=== PATIENT | female | born 1985 | race Caucasian/White ===

== ENCOUNTER 2017-11-03 14:12 | Observation (INO) | payer MEDICAID, SELFPAY ==
[2017-11-03 14:13] VITALS: BP 106/86; PULSE 120; RESP 18; TEMP 36.6; O2SAT 98; BMI 27.4
[2017-11-03] MEDS: Ondansetron 4 MG/2 ML Vial IM (15:49)
[2017-11-03] MEDS: HYDROmorphone 1 MG/ML Syringe 2 MG SC (15:49)
--- NOTE | 2017-11-03 16:00 | RAD_ITS ---
STUDY: X-RAY - LUMBAR SPINE REASON FOR EXAM: Female, 32 years old. Following bath tub today. Severe low back pain. TECHNIQUE: 3 view(s) of the lumbar spine were obtained. COMPARISON: None FINDINGS: Normal lumbar lordosis. There is no substantial scoliosis. There is a normal alignment of the vertebrae. A Schmorl's node, a normal variant in the superior and anterior endplate of L3. There is intervertebral disc space narrowing at L2-3 and L3-4 with small osteophytes. There is diffuse facet sclerosis. The soft tissue structures are unremarkable. RAD/Lumbar Spine 2 or 3 Views IMPRESSION: Mild lumbar spondylosis. No acute pathology. Electronically Signed: Sonny Krueger MD at 16:23 EDT , Service support ,
--- NOTE | 2017-11-03 16:59 | ED.DCSUM_ITS ---
- ER Visit Summary Date of Service: 11/03/17 Chief Complaint: Back pain History of Present Illness: The patient is a 32 F presenting with back pain after slip in shower this morning. She fell onto her lower back. She tried Tylenol, ibuprofen, Percocet at home. She complains of severe lower back pain. She denies numbness or weakness. Denies bowel or bladder incontinence. She is able to ambulate with pain. She did not hit her head or lose consciousness. Physical Examination: Vitals are stable. Patient is afebrile. Alert no acute distress. HEENT exam is unremarkable. Neck is supple. Lungs are clear and equal bilaterally. Heart is regular rate and rhythm. Abdomen is soft nontender nondistended. Back: Lumbar tenderness with no step-off Extremities are unremarkable. Skin is warm and dry. No focal neurologic deficit. Normal strength and sensation Remainder of exam is unremarkable. Emergency Department Course and Treatment: Lumbar spine x-ray shows no acute process. Patient was given Dilaudid, Zofran IM. She continues to have pain and was given Toradol, Valium, Phenergan. She continues to have pain and does not feel that she can go home. Discussed with the hospitalist for observation. Disposition: Observation Impression: Intractable back pain This note was generated with [employer] dictation software. It may contain incorrect words, spelling, and punctuation that were not noted in review of the chart prior to signing ED Disposition - Plan for ED Patient: Chief Complaint: Back Referrals: Care Physician,No Primary [Primary Care Provider] -
[2017-11-03] MEDS: proMETHazine 25 MG/ML Syringe 12.5 MG IM (17:04)
[2017-11-03] MEDS: Ketorolac 60 MG/2 ML Vial IM (17:04)
[2017-11-03] MEDS: diazePAM 5 MG Tablet PO (17:04)
[2017-11-03] MEDS: HYDROmorphone 1 MG/ML Syringe SC (17:40)
[2017-11-03 18:24] VITALS: BP 130/77; PULSE 79; RESP 18; O2SAT 99
--- NOTE | 2017-11-03 18:24 | PCM.HP.STD ---
Problem List (1) Fall Status: Acute (2) Low back pain Status: Acute (3) History of pulmonary embolism Status: Chronic (4) History of DVT (deep vein thrombosis) Status: Chronic History of Present Illness Date of Admission: 11/03/17 Chief Complaint: Fall, back pain. The patient is a 32 year old F with past medical history as mentioned above presented to the emergency room because of back pain after she slipped in the shower this morning. She had a fall, she started having low back pain, sharp pain, 10 out of 10 in severity, not radiating, aggravated by movement, no relieving factors and no associated symptoms. She denied drinking numbness or tingling. She denied any prodromal symptoms such as chest pain, shortness of breath, dizziness or lightheadedness. She has history of IVC that was placed for history of PE and DVT that was taken out a few years ago but part of it was broken and left behind. That this pain is at the site where the broken IVC is. She denied hematuria, hematochezia or melena. In the emergency department, she received IV hydromorphone ?2, IV Toradol and Valium without improvement. He was tachycardic, later her heart rate came down to 70s, blood pressure stable and she is afebrile. X-ray lumbar spine showed no acute fractures or dislocations, there is linear opacity in the front of vertebral disc between L3 and L4 which could be corresponding to the broken piece of the IVC filter. 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 Lives: Spouse/ Significant Other Smoking Status: Former smoker Alcohol: None Drugs: None - *Family History Maternal History Items: No pertinent history Paternal History Items: No pertinent history Review of Systems Constitutional: Denies: Anorexia, Chills, Fever, Weakness Eyes: Denies: Blurred vision, Double vision, Drainage, Redness HEENT: Denies: Difficulty Hearing, Ear Pain, Eye Pain, Nasal Congestion, Sore Throat Cardiovascular: Denies: Chest Pain, Chest Pressure, Chest Tightness, Edema, Light Headedness, Palpitations, Syncope Respiratory: Denies: Cough, Pleuritic Pain, Shortness of Breath, Sputum production, Wheezing Gastrointestinal: Denies: Abdominal Pain, Constipation, Diarrhea, Nausea, Vomiting Genitourinary: Denies: Dysuria, Frequency, Hematuria Musculoskeletal: Reports: Back Pain. Denies: Arm Pain, Foot Pain Skin: Denies: Dryness, Rash Neurological: Denies: Balance problems, Double vision, Change in Speech, Slurred speech, Confusion, Focal weakness, Headaches, Incoordination, Numbness Psychiatric: Denies: Anxiety, Depression Endocrine: Denies: Change in Body Habitus, Polydipsia VTE Information - Inpt Only VTE Present on Admission: No VTE Mechan Device Prophylaxis: None VTE Pharm Prophylaxis ordered?: Yes Patient Problems: Active and Suspected Problems Fall (Acute) Low back pain (Acute) - Physical Exam General: Alert, Oriented x3, Cooperative, - - She is in mild to moderate pain. HEENT: Atraumatic, PERRLA, EOMI Oral: Moist Mucosa, No Gingival or Mucosal Lesions/ Ulcerations Neck: Supple, No JVD, Negative Carotid Bruits, Trachea Midline, Thyroid Normal Size and Texture Lungs: Clear to auscultation, Normal air movement, No rhonchi, No wheeze, No rales Cardiovascular: Regular rate, Regular Rhythm, Normal S1, Normal S2, No murmurs Abdomen: Bowel Sounds Present, Soft, Non Tender, Non-Distended, No Hepato-splenomegaly, Obese Extremities: No clubbing, No cyanosis, No edema Skin: No rashes, No breakdown Lymphatic: No Cervical, Supraclavicular, or Inguinal Adenopathy Neurological: Cranial nerves II-XII grossly intact, Motor Exam 5/5 strength throughout Psych/Mental Status: Normal Affect, Appropriate, Alert and oriented to time, place, person, mood and affect Vital Signs Temp Pulse Resp BP Pulse Ox 98 F 120 H 18 106/86 H 98 11/03/17 14:13 11/03/17 14:13 11/03/17 14:13 11/03/17 14:13 11/03/17 14:13 Oxygen Delivery Method Room Air Weight: 160 lb Body Mass Index (BMI) 27.4 Clinical Impression(s) from Imaging Studies Lumbar Spine X-Ray 11/03/17 16:00 IMPRESSION: Mild lumbar spondylosis. No acute pathology. Electronically Signed: Sonny Krueger MD at 16:23 EDT , Service support , Assessment/Plan Active and Suspected Problems Fall (Acute) Low back pain (Acute) This is a 52 years old female patient presented to the emergency department because of fall and low back pain, received IV hydromorphone ?2, IV Toradol ?1, IV Valium in the emergency room without improvement. She is being admitted for intractable low back pain in context of history of broken IVC filter and the site of the pain is corresponding to the place of the broken IVC filter. #1 fall/intractable low back pain: X-ray of the lumbar spine showed no evidence of acute fractures or dislocations. It does show that linear opacity in the front of the vertebral disc between L3 and L4 which could corresponds to the broken IVC filter. Vital signs are stable. No routine blood work was done in the emergency room. Plan: Admit to [facility] floor for observation, IV fluids, IV hydromorphone as needed for pain, IV OxyIR as needed for pain, CT scan lumbar spine with contrast, stat CBC and BMP, pro time and INR, Tylenol as needed, PT OT evaluation and treatment #2 history of PE/DVT, status post IVC filter: IVC was removed and was broken, a small part was left over. Plan as above. #3 DVT prophylaxis: Subcu Lovenox. This note was generated with [employer] dictation software. It may contain incorrect words, spelling, and punctuation that were not noted in checking the note before signing. Code Visit OBSV E&M: 08440 Initial observation care L3
--- NOTE | 2017-11-03 18:33 | HP.PCM_ITS ---
Problem List (1) Fall Status: Acute (2) Low back pain Status: Acute (3) History of pulmonary embolism Status: Chronic (4) History of DVT (deep vein thrombosis) Status: Chronic History of Present Illness Date of Admission: 11/03/17 Chief Complaint: Fall, back pain. The patient is a 32 year old F with past medical history as mentioned above presented to the emergency room because of back pain after she slipped in the shower this morning. She had a fall, she started having low back pain, sharp pain, 10 out of 10 in severity, not radiating, aggravated by movement, no relieving factors and no associated symptoms. She denied drinking numbness or tingling. She denied any prodromal symptoms such as chest pain, shortness of breath, dizziness or lightheadedness. She has history of IVC that was placed for history of PE and DVT that was taken out a few years ago but part of it was broken and left behind. That this pain is at the site where the broken IVC is. She denied hematuria, hematochezia or melena. In the emergency department, she received IV hydromorphone ?2, IV Toradol and Valium without improvement. He was tachycardic, later her heart rate came down to 70s, blood pressure stable and she is afebrile. X-ray lumbar spine showed no acute fractures or dislocations, there is linear opacity in the front of vertebral disc between L3 and L4 which could be corresponding to the broken piece of the IVC filter. 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 Lives: Spouse/ Significant Other Smoking Status: Former smoker Alcohol: None Drugs: None - *Family History Maternal History Items: No pertinent history Paternal History Items: No pertinent history Review of Systems Constitutional: Denies: Anorexia, Chills, Fever, Weakness Eyes: Denies: Blurred vision, Double vision, Drainage, Redness HEENT: Denies: Difficulty Hearing, Ear Pain, Eye Pain, Nasal Congestion, Sore Throat Cardiovascular: Denies: Chest Pain, Chest Pressure, Chest Tightness, Edema, Light Headedness, Palpitations, Syncope Respiratory: Denies: Cough, Pleuritic Pain, Shortness of Breath, Sputum production, Wheezing Gastrointestinal: Denies: Abdominal Pain, Constipation, Diarrhea, Nausea, Vomiting Genitourinary: Denies: Dysuria, Frequency, Hematuria Musculoskeletal: Reports: Back Pain. Denies: Arm Pain, Foot Pain Skin: Denies: Dryness, Rash Neurological: Denies: Balance problems, Double vision, Change in Speech, Slurred speech, Confusion, Focal weakness, Headaches, Incoordination, Numbness Psychiatric: Denies: Anxiety, Depression Endocrine: Denies: Change in Body Habitus, Polydipsia VTE Information - Inpt Only VTE Present on Admission: No VTE Mechan Device Prophylaxis: None VTE Pharm Prophylaxis ordered?: Yes Patient Problems: Active and Suspected Problems Fall (Acute) Low back pain (Acute) - Physical Exam General: Alert, Oriented x3, Cooperative, - - She is in mild to moderate pain. HEENT: Atraumatic, PERRLA, EOMI Oral: Moist Mucosa, No Gingival or Mucosal Lesions/ Ulcerations Neck: Supple, No JVD, Negative Carotid Bruits, Trachea Midline, Thyroid Normal Size and Texture Lungs: Clear to auscultation, Normal air movement, No rhonchi, No wheeze, No rales Cardiovascular: Regular rate, Regular Rhythm, Normal S1, Normal S2, No murmurs Abdomen: Bowel Sounds Present, Soft, Non Tender, Non-Distended, No Hepato- splenomegaly, Obese Extremities: No clubbing, No cyanosis, No edema Skin: No rashes, No breakdown Lymphatic: No Cervical, Supraclavicular, or Inguinal Adenopathy Neurological: Cranial nerves II-XII grossly intact, Motor Exam 5/5 strength throughout Psych/Mental Status: Normal Affect, Appropriate, Alert and oriented to time, place, person, mood and affect Vital Signs Temp Pulse Resp BP Pulse Ox 98 F 120 H 18 106/86 H 98 11/03/17 14:13 11/03/17 14:13 11/03/17 14:13 11/03/17 14:13 11/03/17 14:13 Oxygen Delivery Method Room Air Weight: 160 lb Body Mass Index (BMI) 27.4 Clinical Impression(s) from Imaging Studies Lumbar Spine X-Ray 11/03/17 16:00 IMPRESSION: Mild lumbar spondylosis. No acute pathology. Electronically Signed: Sonny Krueger MD at 16:23 EDT , Service support , Assessment/Plan Active and Suspected Problems Fall (Acute) Low back pain (Acute) This is a 52 years old female patient presented to the emergency department because of fall and low back pain, received IV hydromorphone ?2, IV Toradol ?1, IV Valium in the emergency room without improvement. She is being admitted for intractable low back pain in context of history of broken IVC filter and the site of the pain is corresponding to the place of the broken IVC filter. #1 fall/intractable low back pain: X-ray of the lumbar spine showed no evidence of acute fractures or dislocations. It does show that linear opacity in the front of the vertebral disc between L3 and L4 which could corresponds to the broken IVC filter. Vital signs are stable. No routine blood work was done in the emergency room. Plan: Admit to [facility] floor for observation, IV fluids, IV hydromorphone as needed for pain, IV OxyIR as needed for pain, CT scan lumbar spine with contrast, stat CBC and BMP, pro time and INR, Tylenol as needed, PT OT evaluation and treatment #2 history of PE/DVT, status post IVC filter: IVC was removed and was broken, a small part was left over. Plan as above. #3 DVT prophylaxis: Subcu Lovenox. This note was generated with [employer] dictation software. It may contain incorrect words, spelling, and punctuation that were not noted in checking the note before signing. Code Visit OBSV E&M: 20072 Initial observation care L3
[2017-11-03 18:53] VITALS: BMI 27.5
[2017-11-03 19:17] VITALS: BMI 33.3
--- NOTE | 2017-11-03 19:18 | CT_ITS ---
STUDY: CT LUMBAR SPINE WITHOUT CONTRAST REASON FOR EXAM: Female, 32 years old. Fall RADIATION DOSAGE (If Supplied By Facility): CTDIvol = ( 23.87 ) mGy, DLP = ( 1095.55 ) mGycm TECHNIQUE: The patient was scanned in a multi detector CT scanner. High resolution transaxial imaging was performed. Images were obtained from T12 to sacrum. Sagittal and coronal images were reconstructed. Individualized dose optimization techniques were used for this CT. COMPARISON: None FINDINGS: Normal lumbar lordosis. There is no substantial scoliosis. Normal vertebrae of the lumbar spine. L1-2: Normal endplates. Normal disc height and morphology. Normal bilateral facet joints. Normal central canal and bilateral lateral recesses. Normal bilateral intervertebral neural foramina. L2-3: Schmorl's node at the superior endplate of L3. Normal disc height and morphology. Normal bilateral facet joints. Normal central canal and bilateral lateral recesses. Normal bilateral intervertebral neural foramina. L3-4: Schmorl's node at the superior endplate of L4. Normal disc height and morphology. Normal bilateral facet joints. Normal central canal and bilateral lateral recesses. Normal bilateral intervertebral neural foramina. L4-5: Normal endplates. Normal disc height and morphology. Normal bilateral facet joints. Normal central canal and bilateral lateral recesses. Normal bilateral intervertebral neural foramina. L5-S1: Normal endplates. Normal disc height and morphology. Normal bilateral facet joints. Normal central canal and bilateral lateral recesses. Normal bilateral intervertebral neural foramina. Normal visualized paraspinous soft tissue structures. CT/Spine Lumbar without Contrast IMPRESSION: No acute bony pathology of the lumbar spine. Electronically Signed: Mohamud Hernandez DO at 20:48 EDT Tel [phone], Service support ,
[2017-11-03] MEDS: oxyCODONE 5 MG Tablet PO (19:45)
[2017-11-03 21:21] LABS: Absolute Lymphocyte Count 2.52 X10^3/ul (0.83-4.51); Absolute Neutrophil Count 3.3 X10^3/uL (2.0-7.7); Basophil# 0.01 X10^3/uL; Basophil% 0.1 % (0-1); Eosinophil# 0.38 X10^3/uL; Eosinophils% 5.5 % (0-5); Hematocrit 38.8 % (37-47); Lymphocyte # 2.52 X10^3/ul (4.0); Lymphocyte % 36.4 % (19-41); Mean Corp Hgb Conc 33.5 g/gl (32-36); Mean Corpuscular Hgb 29.1 pg (27.0-32.0); Mean Corpuscular Volume 86.8 fL (81-99); Mean Platelet Vol. 8.9 fl (6.2-12.0); Monocyte# 0.68 X10^3/uL; Monocyte% 9.8 % (0-10); Neutrophil # 3.33 X10^3/uL (2.7-7.7); Neutrophil % 48.1 % (47-70); Platelet Count 287 K/mm3 (150-450); RBC Distribution Width CV 14.6 % (11.6-14.6); RBC Distribution Width SD 46.3 fl (35.1-43.9); Red Blood Count 4.47 M/mm3 (4.2-5.4); White Blood Count 6.9 K/mm3 (4.4-11.0)
[2017-11-03 21:22] LABS: POSITIVE COUNT NO; POSITIVE DIFFERENTIAL NO; POSITIVE MORPHOLOGY NO
[2017-11-03 21:24] LABS: Prothrombin Time (Protime)PT. 13.3 SECONDS (11.7-14.9)
[2017-11-03 21:28] LABS: Anion Gap 8 (5-15); BUN 7 mg/dL (7-18); BUN/Creat Ratio 9.3 RATIO (10-20); Calcium,Total 8.2 mg/dL (8.5-10.1); Chloride 106 mmol/L (98-107); Creatinine, Serum 0.75 mg/dL (0.55-1.02); EST Glomerular Filtration Rate 94 mL/min (>60); Est Glom Filt Rate - Afr Amer 114 mL/min (>60); Estimated Creatinine Clearance 92.99 ml/min; Glucose 89 mg/dL (74-106); Potassium 3.5 mmol/L (3.5-5.1); Sodium Level 140 mmol/L (136-145)
[2017-11-03 21:39] VITALS: BP 117/74; PULSE 90; RESP 18; TEMP 36.6; O2SAT 98
[2017-11-03] MEDS: Ondansetron 4 MG/2 ML Vial IV (23:07)
[2017-11-03] MEDS: HYDROmorphone 1 MG/ML Syringe IV (23:07)
[2017-11-03] MEDS: 0.9% Normal Saline 1,000 ML 75 ML IV (23:07)
[2017-11-04] VITALS (10 sets, daily range): BP systolic 96–121; BP diastolic 60–82; PULSE 60–100; RESP 16–18; TEMP 36.4–36.8; O2SAT 95–100
[2017-11-04] MEDS: HYDROmorphone 1 MG/ML Syringe IV ×2 (02:05→05:08)
[2017-11-04] MEDS: Ondansetron 4 MG/2 ML Vial IV ×2 (05:08→21:02)
[2017-11-04] MEDS: Enoxaparin 40 MG/0.4 ML Syringe SC (05:27)
--- NOTE | 2017-11-04 08:10 | PCM.PROGNOTE ---
Patient Problems: Active and Suspected Problems Fall (Acute) Low back pain (Acute) Subjective: Patient is a 32-year-old female with a past medical history of pulmonary embolism and DVT who is on no home medication who presented to the emergency room on 11/03/2017 at [facility] complaining of back pain after falling in the shower that morning. Plain x-ray of the lumbar spine showed mild lumbar spondylosis with no acute pathology. CT scan of the lumbar spine showed no acute bony pathology, no disc herniations and no stenosis. Normal neural foramina at every level. There is a foreign body anterior to the L3-4 vertebral space that appears as though it may be protruding into the disc space. She gives a story of having an IVC filter removed in the past and part of it breaking off and left inside? The filter was removed by a interventional radiologist at the [facility]. She has seen 2 different neurosurgeons at [facility] and they have said that surgery to remove this object is too risky. She was given Toradol, Valium and Dilaudid in the ED with no improvement. She was admitted to the hospital with intractable back pain and placed on hydromorphone 1 mg IV every 3 hours as needed and oxycodone 5 mg p.o. every 6 hours as needed. She has been taking Dilaudid every 3 hours since admission. Has tried the Oxy IR only once. The Dilaudid does not last 3 hours. She is only comfortable when she is lying on her left side with a pillow between her legs. An [facility] report was reviewed and she was getting regular prescriptions for Percocet up until the end of April 2017 when they stopped. She tells me at that time the Percocet was not really helping and she did not want to take it anymore. She has been living with the pain. The fall in the shower seems to have exacerbated her pain. - Physical Exam General: Alert, Oriented x3, Cooperative, - - appears to be in pain HEENT: Atraumatic, PERRLA, EOMI, Normocephalic Oral: Moist Mucosa Neck: Supple, No Nuchal Rigidity Lungs: Clear to auscultation Cardiovascular: Regular rate, Regular Rhythm, Normal S1, Normal S2, No murmurs, No rub noted, No Gallop Abdomen: Bowel Sounds Present, Soft, Non Tender, Non-Distended Extremities: No clubbing, No cyanosis, No edema, - - She is able to heel walk and toe walk. she has no pain radiating into the legs and no paresthesias. Standing exacerbates the pain. No pain with palpation of the low back and no bruising Skin: No rashes, No breakdown Neurological: Cranial nerves II-XII grossly intact, Neuro grossly intact Psych/Mental Status: Appropriate - emotional and crying in pain......has not been able to find anyone who can remove the foreign body Vital Signs Temp Pulse Resp BP Pulse Ox 97.6 F L 83 16 111/60 97 11/04/17 02:08 11/04/17 02:08 11/04/17 02:08 11/04/17 02:08 11/04/17 02:08 Oxygen Delivery Method Room Air Weight: 194 lb 6.4 oz Body Mass Index (BMI) 33.3 Intake and Output for Last 24 Hours 11/02/17 11/03/17 11/04/17 23:59 23:59 23:59 Intake Total 792 / 792 Output Total 100 / 100 Balance 692 / 692 Laboratory Tests Past 24 Hrs 11/03/17 11/03/17 11/03/17 21:02 21:02 21:02 WBC 6.9 RBC 4.47 Hgb 13.0 Hct 38.8 MCV 86.8 MCH 29.1 MCHC 33.5 RDW 14.6 RDW Differential 46.3 H Plt Count 287 MPV 8.9 Immature Gran % (Auto) 0.100 Neut % (Auto) 48.1 Lymph % (Auto) 36.4 [place] % (Auto) 9.8 Eos % (Auto) 5.5 H Baso % (Auto) 0.1 Absolute Neuts (auto) 3.3 Absolute Lymphs (auto) 2.52 Total Counted Not Reportable PT 13.3 INR 1.0 Sodium 140 Potassium 3.5 Chloride 106 Carbon Dioxide 26.0 Anion Gap 8 BUN 7 Creatinine 0.75 Estim Creat Clear Calc 92.99 Est GFR (MDRD) Af Amer 114 Est GFR (MDRD) Non-Af 94 BUN/Creatinine Ratio 9.3 L Glucose 89 Calcium 8.2 L Medical Necessity - Tobacco Use Smoking Status: Former smoker Assessment/Plan All Active Problems Fall (Acute) Low back pain (Acute) Impressions 1. Intractable back pain 2. Foreign body, a strut from a IVC filter that has been removed, anterior to L3-4 and may be protruding into the intervertebral disc space Dilaudid JTAC for pain control tonight MRI of the LS spine with and without contrast in the AM Code Visit Inpatient E&M: 50048 Subs Hosp L2
--- NOTE | 2017-11-04 08:22 | PN_ITS ---
Patient Problems: Active and Suspected Problems Fall (Acute) Low back pain (Acute) Subjective: Patient is a 32-year-old female with a past medical history of pulmonary embolism and DVT who is on no home medication who presented to the emergency room on 11/03/2017 at [facility] complaining of back pain after falling in the shower that morning. Plain x-ray of the lumbar spine showed mild lumbar spondylosis with no acute pathology. CT scan of the lumbar spine showed no acute bony pathology, no disc herniations and no stenosis. Normal neural foramina at every level. There is a foreign body anterior to the L3-4 vertebral space that appears as though it may be protruding into the disc space. She gives a story of having an IVC filter removed in the past and part of it breaking off and left inside? The filter was removed by a interventional radiologist at the [facility]. She has seen 2 different neurosurgeons at [facility] and they have said that surgery to remove this object is too risky. She was given Toradol, Valium and Dilaudid in the ED with no improvement. She was admitted to the hospital with intractable back pain and placed on hydromorphone 1 mg IV every 3 hours as needed and oxycodone 5 mg p.o. every 6 hours as needed. She has been taking Dilaudid every 3 hours since admission. Has tried the Oxy IR only once. The Dilaudid does not last 3 hours. She is only comfortable when she is lying on her left side with a pillow between her legs. An OARRS report was reviewed and she was getting regular prescriptions for Percocet up until the end of April 2017 when they stopped. She tells me at that time the Percocet was not really helping and she did not want to take it anymore. She has been living with the pain. The fall in the shower seems to have exacerbated her pain. - Physical Exam General: Alert, Oriented x3, Cooperative, - - appears to be in pain HEENT: Atraumatic, PERRLA, EOMI, Normocephalic Oral: Moist Mucosa Neck: Supple, No Nuchal Rigidity Lungs: Clear to auscultation Cardiovascular: Regular rate, Regular Rhythm, Normal S1, Normal S2, No murmurs, No rub noted, No Gallop Abdomen: Bowel Sounds Present, Soft, Non Tender, Non-Distended Extremities: No clubbing, No cyanosis, No edema, - - She is able to heel walk and toe walk. she has no pain radiating into the legs and no paresthesias. Standing exacerbates the pain. No pain with palpation of the low back and no bruising Skin: No rashes, No breakdown Neurological: Cranial nerves II-XII grossly intact, Neuro grossly intact Psych/Mental Status: Appropriate - emotional and crying in pain......has not been able to find anyone who can remove the foreign body Vital Signs Temp Pulse Resp BP Pulse Ox 97.6 F L 83 16 111/60 97 11/04/17 02:08 11/04/17 02:08 11/04/17 02:08 11/04/17 02:08 11/04/17 02:08 Oxygen Delivery Method Room Air Weight: 194 lb 6.4 oz Body Mass Index (BMI) 33.3 Intake and Output for Last 24 Hours 11/02/17 11/03/17 11/04/17 23:59 23:59 23:59 Intake Total 792 / 792 Output Total 100 / 100 Balance 692 / 692 Laboratory Tests Past 24 Hrs 11/03/17 11/03/17 11/03/17 21:02 21:02 21:02 WBC 6.9 RBC 4.47 Hgb 13.0 Hct 38.8 MCV 86.8 MCH 29.1 MCHC 33.5 RDW 14.6 RDW Differential 46.3 H Plt Count 287 MPV 8.9 Immature Gran % (Auto) 0.100 Neut % (Auto) 48.1 Lymph % (Auto) 36.4 [place] % (Auto) 9.8 Eos % (Auto) 5.5 H Baso % (Auto) 0.1 Absolute Neuts (auto) 3.3 Absolute Lymphs (auto) 2.52 Total Counted Not Reportable PT 13.3 INR 1.0 Sodium 140 Potassium 3.5 Chloride 106 Carbon Dioxide 26.0 Anion Gap 8 BUN 7 Creatinine 0.75 Estim Creat Clear Calc 92.99 Est GFR (MDRD) Af Amer 114 Est GFR (MDRD) Non-Af 94 BUN/Creatinine Ratio 9.3 L Glucose 89 Calcium 8.2 L Medical Necessity - Tobacco Use Smoking Status: Former smoker Assessment/Plan All Active Problems Fall (Acute) Low back pain (Acute) Impressions 1. Intractable back pain 2. 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
[2017-11-04] MEDS: Acetaminophen 325 MG Tablet 650 MG PO (08:46)
[2017-11-04] MEDS: oxyCODONE 5 MG Tablet PO ×2 (08:46→14:54)
[2017-11-04] MEDS: Ibuprofen 400 MG Tablet 800 MG PO ×2 (12:19→21:14)
[2017-11-04] MEDS: tiZANidine HCl 2 MG Tablet 4 MG PO ×2 (14:22→21:15)
--- NOTE | 2017-11-04 16:36 | CHAPLAIN ---
Type of Pastoral Visit _x__ Initial Visit ___ Follow-up Visit ___ On-call Visit ___ General Patient Visit ___ Spiritual Assessment ___ Family Conference ___ Bereavement ___ Rapid Response ___ Code Blue ___ Other (describe below) Pastoral Care Referral From _x__ Patient ___ Family ___ Nurse ___ Physician ___ Box Lining Machine Feeder ___ Keel Press Operator ___ Other (describe below) Sacrament/Intervention ___ Active listening ___ Anointing ___ Christian ___ Bereavement ___ Communion ___ Yodit exploration ___ ___ Life review ___ Prayer ___ Reconciliation ___ Sacrament of Sick _x__ Supportive presence ___ Wedding ___ Other (describe below) Pastoral Comments patient has pillow over her head and shaking; pt says that she does not really want to talk with anyone at this time; left patient and gave offer to return for support if she would desire that in the future
[2017-11-04] MEDS: HYDROmorphone PCA 0.2 MG/ML 100 ML BAG 20 MG IV (20:07)
[2017-11-04] MEDS: 0.9% NaCl IVPB Med Flush (250 mL) 15 ML IV (21:02)
[2017-11-04] MEDS: Senna/Docusate Sodium 1 Tablet 2 TABLET PO (21:15)
[2017-11-05] VITALS (15 sets, daily range): BP systolic 98–117; BP diastolic 63–83; PULSE 69–98; RESP 16–18; TEMP 36.4–36.9; O2SAT 93–97
[2017-11-05 02:06] LABS: Bedside Glucose 104 mg/dL (70-110)
--- NOTE | 2017-11-05 02:17 | PCM.HOSP.N ---
Hospitalist Note Patient used restroom without any staff assist despite prior recommendations to call staff for any needs especially given intractable back pain admission w/ debility. She noted when getting you from the toilet she was lightheaded and started to fall. In order to minimize discomfort to her back, she fell forward onto her knees. She denied any severe pain to the region and denied any head trauma. She was assisted back to bed and a bed alarm was placed.
[2017-11-05] MEDS: Ondansetron 4 MG/2 ML Vial IV ×2 (04:18→12:27)
[2017-11-05] MEDS: Ibuprofen 400 MG Tablet 800 MG PO ×2 (05:52→13:43)
[2017-11-05] MEDS: Enoxaparin 40 MG/0.4 ML Syringe SC (05:52)
[2017-11-05] MEDS: tiZANidine HCl 2 MG Tablet 4 MG PO ×2 (06:49→13:43)
--- NOTE | 2017-11-05 07:08 | PN_ITS ---
Patient Problems: Active and Suspected Problems Fall (Acute) Low back pain (Acute) Subjective: All events of the past 24 hours been reviewed. She fell last night in the bathroom. I reviewed Dr. Etienne's note of the event and apparently there were no injuries. She failed to call the nurse or nurse's aide for assistance to the bathroom. This a.m. she is requesting something for anxiety prior to the MRI. 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 She suggested that Phenergan helps her. MRI is scheduled for today. She is afebrile with stable vital signs. Pulse ox is 94-97% on room air. She seems to have a high tolerance of narcotics despite the fact that she states she has not taken Percocet since May 2017. - Physical Exam Vital Signs Temp Pulse Resp BP Pulse Ox 97.9 F 89 16 111/74 94 11/05/17 06:58 11/05/17 06:58 11/05/17 06:58 11/05/17 06:58 11/05/17 06:58 Oxygen Delivery Method Room Air Weight: 194 lb 6.387 oz Body Mass Index (BMI) 33.3 Intake and Output for Last 24 Hours 11/03/17 11/04/17 11/05/17 23:59 23:59 23:59 Intake Total 792 / 792 714 / 714 Output Total 100 / 100 Balance 692 / 692 714 / 714 POC Glucose 11/05/17 02:00 POC Glucose 104 Medical Necessity - Tobacco Use Smoking Status: Former smoker Assessment/Plan All Active Problems Fall (Acute) Low back pain (Acute)
--- NOTE | 2017-11-05 08:30 | MRI_ITS ---
STUDY: MRI LUMBAR SPINE WITHOUT CONTRAST REASON FOR EXAM: Female, 32 years old. FB PROTRUDING INTO L3/4 DISC SPACE, hx of broken ivc filter remaining, back pain s/p fall TECHNIQUE: Standardized fat and water weighted pulse sequences were obtained in the sagittal and axial planes. COMPARISON: CT November 03, 2017 FINDINGS: There is motion artifact. There is an exaggerated lumbar lordosis. There is no substantial scoliosis. Normal conus medullaris that terminates at the L1-2 level. There is no spondylolisthesis. There is disc desiccation at L2-3 and L3-4. There is mild loss of disc height at L5-S1. There is chronic loss of height of the anterior superior L3 and L4 vertebral bodies. Bone marrow signal is normal. There is no acute fracture. T12/L1: Sagittal images only were obtained. Normal. L1/2: Normal. L2/3: There is a minimal diffuse bulge. No central canal or neuroforaminal stenosis. L3/4: There is a minimal diffuse bulge. No central canal or neuroforaminal stenosis. L4/5: There is facet and ligamentum flavum hypertrophy. Normal disc. No central canal or neuroforaminal stenosis. L5/S1: There is facet and ligamentum flavum hypertrophy. Normal disc. No central canal or neuroforaminal stenosis. Normal visualized sacral ala. The foreign body well seen on the CT is only suggested on the MRI. No associated soft tissue edema or hematoma is seen. MRI/Spine Lumbar (Routine) IMPRESSION: The foreign body well seen on the CT is only suggested on the MRI. No associated soft tissue edema or hematoma is seen. Mild degenerative changes of the lumbar spine without central canal or neuroforaminal stenosis. Electronically Signed: Anu Marcus MD at 12:35 EDT , Service support ,
[2017-11-05] MEDS: proMETHazine 25 MG/ML Syringe 12.5 MG IV (09:13)
[2017-11-05] MEDS: HYDROmorphone 1 MG/ML Syringe IV (09:15)
--- NOTE | 2017-11-05 09:28 | NURSING ---
to mri via bed, pt removed her jewelery
--- NOTE | 2017-11-05 10:10 | NURSING ---
returned from mri by bed
[2017-11-05] MEDS: Acetaminophen 325 MG Tablet 650 MG PO ×2 (12:25→19:28)
[2017-11-05] MEDS: oxyCODONE 5 MG Tablet 10 MG PO ×3 (13:42→19:28)
--- NOTE | 2017-11-05 15:00 | CHAPLAIN ---
Type of Pastoral Visit ___ Initial Visit _x__ Follow-up Visit ___ On-call Visit ___ General Patient Visit ___ Spiritual Assessment ___ Family Conference ___ Bereavement ___ Rapid Response ___ Code Blue ___ Other (describe below) Pastoral Care Referral From _x__ Patient ___ Family ___ Nurse ___ Physician ___ Mill Operator Helper ___ Piercer ___ Other (describe below) Sacrament/Intervention ___ Active listening ___ Anointing ___ Yazidism ___ Bereavement ___ Communion ___ Yodit exploration ___ ___ Life review ___ Prayer ___ Reconciliation ___ Sacrament of Sick _x__ Supportive presence ___ Wedding ___ Other (describe below) Pastoral Comments patient says that she has had some improvement and is waiting on test results; pt says that she misses her children and hopes to see them today as they plan to visit; no further requests or concerns
--- NOTE | 2017-11-05 15:54 | NURSING ---
no changes in am assessment, denies n/t to extremeties-a&o x3-able to stand, walke and void after getting self out of bed-ambulatory to br for void, pt states she feels like she is emptying-c/o nausea but eats full meals ordered from dietary
--- NOTE | 2017-11-05 18:53 | PCM.DC ---
- Discharge Diagnoses Current Active Problems: Current Active and Chronic Problems Fall (Acute) Low back pain (Acute) History of pulmonary embolism (Chronic) History of DVT (deep vein thrombosis) (Chronic) You will use the following diet at home:: No restrictions Your food should be the consistency of: Regular Your liquids should be the consistency of: Regular/Thin Discharge Activity: - - No bending, Lifting or twisting for the next 5 days. Do not ride in a car for more that 5-10 minutes. Return to work on:: 11/09/17 May resume sexual activity in: 10-14 days Weight Bearing Status: Weight bearing as tolerated Lifting Restrictions: no more than 5 pounds Additional Activity Instructions:: do not sit for more than 1 hour at a time without getting up to move around Call your doctor if you observe: Fever of 101 or Higher, Inability to urinate, Inability to have a bowel movement, Uncontrolled pain Additional Instructions: 1. When you have chronic pain it is best to treat it with multiple different modalities for pain relief. I am giving you a prescription for Motrin (which is an anti-inflammatory), tizanidine (a muscle relaxer) and Percocet. Sometimes moist heat for 15 minutes 3-4 times a day helps and massage can help as well. Many people get relief from accupuncture and I think a TENS unit is very beneficial. You can purchase a TENS unit at most of the larger pharmacies and they are relatively inexpensive. Take it easy for the next 4-5 days. I would continue your efforts to find a surgeon willing to try and get the strut from the IVC filter excised.....it will not be an easy task and every surgery makes scar tissue which can also cause pain. Explore all your options and make sure to ask about all the risks associated with the planned surgery. The MRI was normal and the strut does not contact the vertebral bodies or the spinal cord or the nerves exiting the spinal cord in any way. Something else you might think about is a medication called Cymbalta. Cymbalta is an antidepressant that is also used to help manage chronic pain. If you are anxious or depressed every pain is greatly magnified and harder to endure......Effexor is a similar medicatrion that you could try if your insurance does not cover Cymbalta. Pending Tests on Discharge: none Allergies/Adverse Reactions: Allergies haloperidol [From Haldol] Allergy (Verified 11/03/17 14:15) Hives morphine Allergy (Verified 11/03/17 14:15) Hives ANTIBIOTIC Allergy (Uncoded 11/03/17 14:15) Unknown Medications to take at Discharge Ibuprofen [Motrin] 800 mg PO Q8 #90 tab 11/05/17 Oxycodone HCl/Acetaminophen [Percocet 10-325 mg Tablet] 1 tab PO Q6H PRN PRN 7 Days #28 tab 11/05/17 Tizanidine HCl [Zanaflex] 4 mg PO Q8H PRN PRN #30 tab 11/05/17 The following prescriptions were given: Oxycodone HCl/Acetaminophen [Percocet 10-325 mg Tablet] 1 tab PO Q6H PRN PRN 7 Days #28 tab PRN Reason: Pain Tizanidine HCl [Zanaflex] 4 mg PO Q8H PRN PRN #30 tab PRN Reason: muscle spasm/back pain Ibuprofen [Motrin] 800 mg PO Q8 #90 tab Primary Care Physician: Care Physician,No Primary [Primary Care Provider] - Please follow up with your Primary Care Physician in: 1-2 weeks Proposed Discharge Date: 11/05/17
--- NOTE | 2017-11-05 19:06 | PCM.DC.SUM ---
Discharge Date and Diagnosis - Problem List Patient Problems: Active and Suspected Problems Fall (Acute) Low back pain (Acute) Date of Admission: 11/03/17 Date of Discharge: 11/05/17 - Primary Discharge Diagnosis Active and Suspected Problems Fall (Acute) Intractable Low back pain (Acute) - Secondary Discharge Diagnosis Chronic Problems Foreign body of back (Chronic) anterior to the vertebral bodies at L3-4. this is a strut from an IVC filter that was incompletely removed. History of pulmonary embolism (Chronic) History of DVT (deep vein thrombosis) (Chronic) obesity Hospital Course and Treatment Imaging Results: Clinical Impression(s) from Imaging Studies Lumbar Spine X-Ray 11/03/17 16:00 IMPRESSION: Mild lumbar spondylosis. No acute pathology. Electronically Signed: Sonny Krueger MD at 16:23 EDT , Service support , ADDENDUM: 11/05/[address] 11/03/17 19:18 IMPRESSION: No acute bony pathology of the lumbar spine. Electronically Signed: Mohamud Hernandez DO at 20:48 EDT Tel [phone], Service support , ADDENDUM: 11/03/17 2110 Lumbar Spine MRI 11/05/17 08:30 IMPRESSION: The foreign body well seen on the CT is only suggested on the MRI. No associated soft tissue edema or hematoma is seen. Mild degenerative changes of the lumbar spine without central canal or neuroforaminal stenosis. Electronically Signed: Anu Marcus MD at 12:35 EDT , Service support , none Operations: None Procedures: None Summary of Care Provided: Patient is a 32-year-old female with a past medical history of pulmonary embolism and DVT who is on no home medication who presented to the emergency room on 11/03/2017 at [facility] complaining of back pain after falling in the shower that morning. Plain x-ray of the lumbar spine showed mild lumbar spondylosis with no acute pathology. CT scan of the lumbar spine showed no acute bony pathology, no disc herniations and no stenosis. There were normal neural foramina at every level. There was a foreign body anterior to the L3-4 intervertebral space. She told me that she had a IVC filter removed in the past and part of it broke off and was left inside? The filter was removed by a interventional radiologist at the [facility]. She has seen 2 different neurosurgeons at [facility] and they have said that surgery to remove this object is too risky. She was given Toradol, Valium and Dilaudid in the ED with no improvement. She was admitted to the hospital with intractable back pain and placed on hydromorphone 1 mg IV every 3 hours as needed and oxycodone 5 mg p.o. every 6 hours as needed. The Dilaudid did not last 3 hours and she was still very uncomfortable. She was only comfortable when she was lying on her left side with a pillow between her legs. An OARRS report was reviewed and she was getting regular prescriptions for Percocet up until the end of April 2017 when they stopped. She tells me at that time the Percocet was not really helping and she did not want to take it anymore. She has been living with the pain. The fall in the shower seems to have exacerbated her pain. 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 The following morning she had an MRI of the lumbar spine that showed that the foreign body well seen on the CT scan was only suggested on the MRI. There was no associated soft tissue edema or hematoma seen. There were mild degenerative changes of the lumbar spine without central canal or neural foraminal stenosis. She was transitioned to Percocet, Tizanidine and Motrin. I suggested she may want to consider accupuncture, massage, Cymbalta or a TENS unit to assist with pain control. I stressed that pain generally is best treated with several different modalities rather than large doses of Narcotics. I encouraged her to continue to seek out other opinions from surgery about the feasibility of removing the foreign body and the risks vs benefits of the surgery. She was discharged home on 11/05/17. She was instructed not to return to work until November 09. - Physical Exam General: Alert, Oriented x3, Cooperative, - - appears to be in pain HEENT: Atraumatic, PERRLA, EOMI, Normocephalic Oral: Moist Mucosa Neck: Supple, No Nuchal Rigidity Lungs: Clear to auscultation Cardiovascular: Regular rate, Regular Rhythm, Normal S1, Normal S2, No murmurs, No rub noted, No Gallop Abdomen: Bowel Sounds Present, Soft, Non Tender, Non-Distended Extremities: No clubbing, No cyanosis, No edema, - - She is able to heel walk and toe walk. She has no pain radiating into the legs and no paresthesias. Standing exacerbates the pain. No pain with palpation of the low back and no bruising. She was able to squat and get up from a squat without assistance Skin: No rashes, No breakdown Neurological: Cranial nerves II-XII grossly intact, Neuro grossly intact Psych/Mental Status: Appropriate - emotional and crying in pain......has not been able to find anyone who can remove the foreign body This note was generated with MergeLocalation software. It may contain incorrect words, spelling, and punctuation that were not noted in checking the note before signing. Discharge Activity: - - No bending, Lifting or twisting for the next 5 days. Do not ride in a car for more that 5-10 minutes. Return to work on:: 11/09/17 May resume sexual activity in: 10-14 days Weight Bearing Status: Weight bearing as tolerated Additional Activity Instructions:: do not sit for more than 1 hour at a time without getting up to move around Call your doctor if you observe: Fever of 101 or Higher, Inability to urinate, Inability to have a bowel movement, Uncontrolled pain Home Medications: Medications to take at Discharge Ibuprofen [Motrin] 800 mg PO Q8 #90 tab 11/05/17 Oxycodone HCl/Acetaminophen [Percocet 10-325 mg Tablet] 1 tab PO Q6H PRN PRN 7 Days #28 tab 11/05/17 Tizanidine HCl [Zanaflex] 4 mg PO Q8H PRN PRN #30 tab 11/05/17 Following Prescrptions Were Given to Patient: Oxycodone HCl/Acetaminophen [Percocet 10-325 mg Tablet] 1 tab PO Q6H PRN PRN 7 Days #28 tab PRN Reason: Pain Tizanidine HCl [Zanaflex] 4 mg PO Q8H PRN PRN #30 tab PRN Reason: muscle spasm/back pain Ibuprofen [Motrin] 800 mg PO Q8 #90 tab Primary Care Physician: Care Physician,No Primary [Primary Care Provider] - Please follow up with your Primary Care Physician in: 1-2 weeks Disposition: Home Minutes spent on discharge:: 30 Patient Condition:: Stable Medical Necessity - Tobacco Use Smoking Status: Former smoker Meaningful Use Info Meaningful Use Diagnoses (Choose all that apply): None applicable Code Visit OBSV E&M: 75806 Observation care discharge
--- NOTE | 2017-11-05 19:10 | PCM.WORK.EX ---
Work/School Excuse Work/School Excuse for:: Patient Please excuse this person from:: Work From: 11/04/17 through: 11/08/17 Restrictions: Other - no lifting more than 5-10 pounds for 2 weeks
--- NOTE | 2017-11-05 19:19 | DS.PCM_ITS ---
Discharge Date and Diagnosis - Problem List Patient Problems: Active and Suspected Problems Fall (Acute) Low back pain (Acute) Date of Admission: 11/03/17 Date of Discharge: 11/05/17 - Primary Discharge Diagnosis Active and Suspected Problems Fall (Acute) Intractable Low back pain (Acute) - Secondary Discharge Diagnosis Chronic Problems Foreign body of back (Chronic) anterior to the vertebral bodies at L3-4. this is a strut from an IVC filter that was incompletely removed. History of pulmonary embolism (Chronic) History of DVT (deep vein thrombosis) (Chronic) obesity Hospital Course and Treatment Imaging Results: Clinical Impression(s) from Imaging Studies Lumbar Spine X-Ray 11/03/17 16:00 IMPRESSION: Mild lumbar spondylosis. No acute pathology. Electronically Signed: Sonny Krueger MD at 16:23 EDT , Service support , ADDENDUM: 11/05/[address] 11/03/17 19:18 IMPRESSION: No acute bony pathology of the lumbar spine. Electronically Signed: Mohamud Hernandez DO at 20:48 EDT Tel [phone], Service support , ADDENDUM: 11/03/17 2110 Lumbar Spine MRI 11/05/17 08:30 IMPRESSION: The foreign body well seen on the CT is only suggested on the MRI. No associated soft tissue edema or hematoma is seen. Mild degenerative changes of the lumbar spine without central canal or neuroforaminal stenosis. Electronically Signed: Anu Marcus MD at 12:35 EDT , Service support , none Operations: None Procedures: None Summary of Care Provided: Patient is a 32-year-old female with a past medical history of pulmonary embolism and DVT who is on no home medication who presented to the emergency room on 11/03/2017 at [facility] complaining of back pain after falling in the shower that morning. Plain x-ray of the lumbar spine showed mild lumbar spondylosis with no acute pathology. CT scan of the lumbar spine showed no acute bony pathology, no disc herniations and no stenosis. There were normal neural foramina at every level. There was a foreign body anterior to the L3-4 intervertebral space. She told me that she had a IVC filter removed in the past and part of it broke off and was left inside? The filter was removed by a interventional radiologist at the [facility]. She has seen 2 different neurosurgeons at [facility] and they have said that surgery to remove this object is too risky. She was given Toradol, Valium and Dilaudid in the ED with no improvement. She was admitted to the hospital with intractable back pain and placed on hydromorphone 1 mg IV every 3 hours as needed and oxycodone 5 mg p.o. every 6 hours as needed. The Dilaudid did not last 3 hours and she was still very uncomfortable. She was only comfortable when she was lying on her left side with a pillow between her legs. An [facility] report was reviewed and she was getting regular prescriptions for Percocet up until the end of April 2017 when they stopped. She tells me at that time the Percocet was not really helping and she did not want to take it anymore. She has been living with the pain. The fall in the shower seems to have exacerbated her pain. She was started on a Dilaudid TIMBER BUCKER and slept well overnight. The following morning she had an MRI of the lumbar spine that showed that the foreign body well seen on the CT scan was only suggested on the MRI. There was no associated soft tissue edema or hematoma seen. There were mild degenerative changes of the lumbar spine without central canal or neural foraminal stenosis. She was transitioned to Percocet, Tizanidine and Motrin. I suggested she may want to consider accupuncture, massage, Cymbalta or a TENS unit to assist with pain control. I stressed that pain generally is best treated with several different modalities rather than large doses of Narcotics. I encouraged her to continue to seek out other opinions from surgery about the feasibility of removing the foreign body and the risks vs benefits of the surgery. She was discharged home on 11/05/17. She was instructed not to return to work until November 09. - Physical Exam General: Alert, Oriented x3, Cooperative, - - appears to be in pain HEENT: Atraumatic, PERRLA, EOMI, Normocephalic Oral: Moist Mucosa Neck: Supple, No Nuchal Rigidity Lungs: Clear to auscultation Cardiovascular: Regular rate, Regular Rhythm, Normal S1, Normal S2, No murmurs, No rub noted, No Gallop Abdomen: Bowel Sounds Present, Soft, Non Tender, Non-Distended Extremities: No clubbing, No cyanosis, No edema, - - She is able to heel walk and toe walk. She has no pain radiating into the legs and no paresthesias. Standing exacerbates the pain. No pain with palpation of the low back and no bruising. She was able to squat and get up from a squat without assistance Skin: No rashes, No breakdown Neurological: Cranial nerves II-XII grossly intact, Neuro grossly intact Psych/Mental Status: Appropriate - emotional and crying in pain......has not been able to find anyone who can remove the foreign body This note was generated with Preziation software. It may contain incorrect words, spelling, and punctuation that were not noted in checking the note before signing. Discharge Activity: - - No bending, Lifting or twisting for the next 5 days. Do not ride in a car for more that 5-10 minutes. Return to work on:: 11/09/17 May resume sexual activity in: 10-14 days Weight Bearing Status: Weight bearing as tolerated Additional Activity Instructions:: do not sit for more than 1 hour at a time without getting up to move around Call your doctor if you observe: Fever of 101 or Higher, Inability to urinate, Inability to have a bowel movement, Uncontrolled pain Home Medications: Medications to take at Discharge Ibuprofen [Motrin] 800 mg PO Q8 #90 tab 11/05/17 Oxycodone HCl/Acetaminophen [Percocet 10-325 mg Tablet] 1 tab PO Q6H PRN PRN 7 Days #28 tab 11/05/17 Tizanidine HCl [Zanaflex] 4 mg PO Q8H PRN PRN #30 tab 11/05/17 Following Prescrptions Were Given to Patient: Oxycodone HCl/Acetaminophen [Percocet 10-325 mg Tablet] 1 tab PO Q6H PRN PRN 7 Days #28 tab PRN Reason: Pain Tizanidine HCl [Zanaflex] 4 mg PO Q8H PRN PRN #30 tab PRN Reason: muscle spasm/back pain Ibuprofen [Motrin] 800 mg PO Q8 #90 tab Primary Care Physician: Care Physician,No Primary [Primary Care Provider] - Please follow up with your Primary Care Physician in: 1-2 weeks Disposition: Home Minutes spent on discharge:: 30 Patient Condition:: Stable Medical Necessity - Tobacco Use Smoking Status: Former smoker Meaningful Use Info Meaningful Use Diagnoses (Choose all that apply): None applicable Code Visit OBSV E&M: 17260 Observation care discharge
== END 2017-11-05 19:54 | disposition home or self-care (01) ==
LOC: ED 16:54 → MS3 19:14
PROVIDERS: Admitting Provider Hospitalist; Emergency Provider Emergency Medicine; Visit Provider Internal Medicine
DX: M47.896 Other spondylosis, lumbar region (principal); Z86.711 Personal history of pulmonary embolism; Z86.718 Personal history of other venous thrombosis and embolism; E66.9 Obesity, unspecified; Z68.33 Body mass index [BMI] 33.0-33.9, adult; Z71.3 Dietary counseling and surveillance; W18.2XXA Fall in (into) shower or empty bathtub, initial encounter; Z18.89 Other specified retained foreign body fragments; Z87.891 Personal history of nicotine dependence; R42 Dizziness and giddiness
CPT/HCPCS: 36415; 72100; 72131; 72148; 80048; 82962; 85025; 85610; 94762; 96361; 96365; 96366; 96372; 96375; 96376; 97162; 97802; 99218; 99281; J7030; J7050; G0378; J1170; J2405

== ENCOUNTER 2017-11-07 22:34 | Emergency (ER) | payer MEDICAID, SELFPAY ==
[2017-11-07 22:34] VITALS: BP 125/76; PULSE 108; RESP 16; TEMP 36.4; O2SAT 96; BMI 33.7
[2017-11-08] MEDS: proMETHazine 25 MG/ML Syringe 6.25 MG IV (00:16)
[2017-11-08] MEDS: HYDROmorphone 1 MG/ML Syringe 0.5 MG IV (00:16)
[2017-11-08 00:49] LABS: BUN 12 mg/dL (7-18); Creatinine, Serum 0.81 mg/dL (0.55-1.02); Glucose 99 mg/dL (74-106)
[2017-11-08 00:50] LABS: Anion Gap 8 (5-15); BUN/Creat Ratio 14.8 RATIO (10-20); Calcium,Total 8.7 mg/dL (8.5-10.1); Chloride 107 mmol/L (98-107); EST Glomerular Filtration Rate 86 mL/min (>60); Est Glom Filt Rate - Afr Amer 105 mL/min (>60); Sodium Level 141 mmol/L (136-145)
[2017-11-08 00:57] LABS: Absolute Lymphocyte Count 2.09 X10^3/ul (0.83-4.51); Absolute Neutrophil Count 2.1 X10^3/uL (2.0-7.7); Basophil# 0.01 X10^3/uL; Basophil% 0.2 % (0-1); Eosinophil# 0.32 X10^3/uL; Eosinophils% 6.4 % (0-5); Hemoglobin 13.5 g/dl (12.0-15.0); Lymphocyte # 2.09 X10^3/ul (4.0); Lymphocyte % 41.8 % (19-41); Mean Corp Hgb Conc 32.9 g/gl (32-36); Mean Corpuscular Hgb 28.7 pg (27.0-32.0); Mean Corpuscular Volume 87.2 fL (81-99); Mean Platelet Vol. 10.1 fl (6.2-12.0); Monocyte# 0.48 X10^3/uL; Monocyte% 9.6 % (0-10); Neutrophil # 2.08 X10^3/uL (2.7-7.7); Neutrophil % 41.6 % (47-70); Platelet Count 284 K/mm3 (150-450); RBC Distribution Width CV 14.5 % (11.6-14.6); RBC Distribution Width SD 46.3 fl (35.1-43.9)
[2017-11-08 00:58] LABS: Differential Indicated SCAN CRITERIA MET; POSITIVE COUNT YES; POSITIVE DIFFERENTIAL NO; POSITIVE MORPHOLOGY NO
[2017-11-08] MEDS: HYDROmorphone 1 MG/ML Syringe IV (01:25)
[2017-11-08 01:26] LABS: Differential Comment SCANNED; Platelet Estimate ADEQUATE (ADEQ)
--- NOTE | 2017-11-08 01:29 | ED.VISSUMM ---
- ER Visit Summary Date of Service: 11/08/17 Chief Complaint: [] Acute on chronic back pain History of Present Illness: The patient is a 32 F [] complaining of acute on chronic back pain. Review of her records she was recently admitted received high-dose narcotics. She has a history of having a portion of the IVC filter that remains in her body after the IVC filter was removed. She recently had an MRI of her back and was ultimately admitted. She reports worsening pain. Denies fevers. No other complaints at this time. Physical Examination: [] Afebrile, vital signs stable. 32-year-old female no acute distress. Mild lumbosacral tenderness on palpation without signs of cellulitis, erythema, warmth, step-off. Remainder of exam was unremarkable. Test Results: [] CBC, BMP normal. Emergency Department Course and Treatment: [] Patient given 2 doses of IV Dilaudid and intravenous Phenergan. On serial exam she had improvement of symptoms however was requesting immediate surgical removal of her reported foreign body. I told her that this is not a true surgical emergency and that she should follow-up with general surgeon or house painter helper. Her labs are normal. Her exam is unimpressive and her vitals are normal. She is amenable to this plan. She was given referral to Dr. Jade. Treatment Plan: [] Follow-up with general surgeon or house painter helper. Disposition: [] Discharge, stable Impression: [] Acute on chronic abdominal pain This note was generated with [employer] dictation software. It may contain incorrect words, spelling, and punctuation that were not noted in review of the chart prior to signing ED Disposition - Plan for ED Patient: Chief Complaint: Back Referrals: Care Physician,No Primary [Primary Care Provider] -
--- NOTE | 2017-11-08 01:34 | ED.DCSUM_ITS ---
- ER Visit Summary Date of Service: 11/08/17 Chief Complaint: [] Acute on chronic back pain History of Present Illness: The patient is a 32 F [] complaining of acute on chronic back pain. Review of her records she was recently admitted received high-dose narcotics. She has a history of having a portion of the IVC filter that remains in her body after the IVC filter was removed. She recently had an MRI of her back and was ultimately admitted. She reports worsening pain. Denies fevers. No other complaints at this time. Physical Examination: [] Afebrile, vital signs stable. 32-year-old female no acute distress. Mild lumbosacral tenderness on palpation without signs of cellulitis, erythema, warmth, step-off. Remainder of exam was unremarkable. Test Results: [] CBC, BMP normal. Emergency Department Course and Treatment: [] Patient given 2 doses of IV Dilaudid and intravenous Phenergan. On serial exam she had improvement of symptoms however was requesting immediate surgical removal of her reported foreign body. I told her that this is not a true surgical emergency and that she should follow-up with general surgeon or painter and body mechanic apprentice. Her labs are normal. Her exam is unimpressive and her vitals are normal. She is amenable to this plan. She was given referral to Dr. Jade. Treatment Plan: [] Follow-up with general surgeon or painter and body mechanic apprentice. Disposition: [] Discharge, stable Impression: [] Acute on chronic abdominal pain This note was generated with [employer]order dictation software. It may contain incorrect words, spelling, and punctuation that were not noted in review of the chart prior to signing ED Disposition - Plan for ED Patient: Chief Complaint: Back Referrals: Care Physician,No Primary [Primary Care Provider] -
--- NOTE | 2017-11-08 01:34 | ED.DEP ---
ED Disposition - Plan for ED Patient: Disposition: Home or Assisted Living Chief Complaint: Back Diagnosis: Low back pain Instructions: Common Myths About Pain Medications, Relieving Back Pain Referrals: Care Physician,No Primary [Primary Care Provider] - Rashid Jade MD [STAFF PHYSICIAN] -
[2017-11-08 01:41] VITALS: BP 121/74; PULSE 98; RESP 18; O2SAT 98
== END 2017-11-08 01:59 | disposition home or self-care (01) ==
PROVIDERS: Emergency Provider Emergency Medicine
DX: M54.5 Low back pain (principal); G89.29 Other chronic pain; Z86.711 Personal history of pulmonary embolism; Z86.718 Personal history of other venous thrombosis and embolism
CPT/HCPCS: 80048; 85025; 96361; 96374; 96375; 99285; J7040; A4216